=== PATIENT | female | born 1950 | race Caucasian/White ===

== ENCOUNTER → 2018-09-03 10:31 | Outpatient (CLI) | payer MEDICARE, BC | END | disposition home or self-care (01) | LOC: D.MRI 10:31 | PROVIDERS: ATTEND Family Medicine | DX: M13.862 Other specified arthritis, left knee (principal) ==

== ENCOUNTER → 2018-10-01 14:35 | Outpatient (CLI) | payer MEDICARE, BC | END | disposition home or self-care (01) | LOC: D.LABREF 14:35 | PROVIDERS: ATTEND Orthopaedic Surgery | DX: M17.12 Unilateral primary osteoarthritis, left knee (principal); Z11.8 Encounter for screening for other infectious and parasitic diseases ==

== ENCOUNTER 2018-10-02 12:24 | Inpatient (IN) | payer MEDICARE, BC ==
[~2018-10-02] VITALS: Ht 165.1 cm; Wt 81.8 kg
[2018-10-28] MEDS ORDERED: ACETAMINOPHEN325 MG PO (15:41)
[2018-10-28] MEDS ORDERED: OMEPRAZOLE20 M1 PO (15:41)
[2018-10-28] MEDS ORDERED: PROBIOTIC BLEN1 EACH PO (15:42)
[2018-10-28] MEDS ORDERED: FISH OIL 1,0001 CA1 PO (15:42)
[2018-10-28] MEDS ORDERED: CENTRUM SILVER1 EAC3 PO (15:42)
[2018-10-29 11:34] LABS: BASOPHILS 0.7 % (0-2); EOSINOPHILS 1.9 % (0-7); HEMATOCRIT 37.9 % (36.0-48.0); HEMOGLOBIN 12.1 g/dL (12-16); IMMATURE GRANULOCYTES 0.1 % (0-5); LYMPHOCYTES 27.5 % (15-50); MCH 23.4 pg (26.0-34.0); MCHC 31.9 g/dL (31.0-37.0); MCV 73.4 fL (80.0-100.0); MEAN PLATELET VOLUME 9.8 fL (7.4-10.4); MONOCYTES 11.5 % (2-11); NEUTROPHILS 58.3 % (40-80); PLATELET COUNT 235 10x3/uL (130-400); RBC 5.16 10x6/uL (4.00-5.40); RDW 18.2 % (11.5-14.5); WBC 6.9 10x3/uL (4.8-10.8)
[2018-10-29 11:36] LABS: APPEARANCE CLEAR (CLEAR); BILIRUBIN NEGATIVE (NEGATIVE); COLOR STRAW (YELLOW); GLUCOSE NEGATIVE (NEGATIVE); KETONE NEGATIVE (NEGATIVE); NITRITE NEGATIVE (NEGATIVE); PROTEIN NEGATIVE (NEGATIVE); SPECIFIC GRAVITY 1.005 (1.005-1.020); UROBILINOGEN NORMAL (NORMAL)
[2018-10-29 11:46] LABS: CALC OSMOLALITY 277 mosm/kg (275-300); CALCIUM 9.5 mg/dL (8.5-10.1); CARBON DIOXIDE 28.1 mmol/L (21.0-32.0); CHLORIDE - SERUM 103 mmol/L (98-107); CREATININE - SERUM 0.8 mg/dL (0.6-1.3); GLUCOSE 106 mg/dL (74-106); POTASSIUM - SERUM 3.9 mmol/L (3.5-5.1); SODIUM 138 mmol/L (136-145); UREA NITROGEN 17 mg/dL (7-18); eGFR NON AFRICAN AMERICAN 75 mL/min (90-120)
[2018-10-29 11:53] LABS: APTT 28.1 SECONDS (22.8-39.4); INR 1.11 (0.85-1.17); PROTIME 13.8 SECONDS (11.6-15.0)
[2018-10-29 12:14] LABS: FERRITIN 14 ng/mL (3-244)
[2018-10-31 16:08] LABS: HGB - INTERPRETATION Note: (()); HGB - SOLUBILITY Negative (Negative)
[2018-11-04] MEDS ORDERED: ZYRTEC10 MG PO (05:07)
[2018-11-04] MEDS ORDERED: AFRIN15 ML (05:08)
[2018-11-04 05:57] VITALS: BP 144/68; BMI 30.1
--- NOTE | 2018-11-04 09:21 | NUR ---
PT RESTING QUIETLY IN PACU DENIES ANY PAIN. ICE APPLIED TO L.KNEE. XRAY TEAM AT BEDSIDE FOR ORDERED XRAYS. NO CURRENT NEEDS.
[2018-11-04 09:39] VITALS: BP 131/60
[2018-11-04 09:56] VITALS: BP 131/60; Ht 165.1 cm; Wt 81.8 kg
--- NOTE | 2018-11-04 10:00 | NUR ---
TO ROOM 2217 FROM PACU VIA BED. PT IS WITHOUT DISTRESS. SHE STATES SHE WANTS TO TAKE A NAP. DRESSING LEFT KNEE CDI. ICE IN PLACE. ORIENTATION TO ROOM.CALL LIGHT IN REACH.
--- NOTE | 2018-11-04 11:49 | OP ---
PATIENT NAME: BARRY WORTHINGTON MEDICAL RECORD: [id number] :50 LOCATION:D.[facility] [address] ADMISSION DATE:11/04/18 SURGEON: YOUNG CHEEMA DO DATE OF OPERATION: 11/04/2018 PROCEDURE PERFORMED: Left total knee arthroplasty. Components used were 65 posterior stabilized Vanguard femur, 71 cruciate tibia, and a 31 three PEG thin patella, a 12 E-poly posterior stabilized bearing. PREOPERATIVE DIAGNOSIS: Left knee osteoarthritis with valgus deformity. POSTOPERATIVE DIAGNOSIS: Left knee osteoarthritis with valgus deformity. INDICATIONS: Ms. Worthington is a 68-year-old female who has had left knee pain for quite some time. She has been dealing with it, has tried all manner of nonoperative treatment including injections, physical therapy at home and she was tired of dealing with the pain and having pain with her knee and she was willing to take the risk of infection, bleeding, damage to nerves and vessels, need for further surgery, continued pain and signed a consent as well as blood clots and even . She signed the consent. SURGEON: Young Cheema DO YARD STOCKER: I was assisted by Luis Whyte, advanced nurse practitioner. Surgery could not have been performed without his assistance. He assisted with closing and retraction. DESCRIPTION OF PROCEDURE: The patient received a block by anesthesia in the preoperative area was taken to the operative suite, laid in supine position, given a gram of Ancef and 80 mg gentamicin preoperatively. The left lower extremity at that point was prepped and draped in sterile fashion. Timeout was performed, everyone was in agreement with the correct side, site, patient and procedure. Once that was done, the new incision was marked out and covered with Ioban and the 10-blade scalpel was used to cut through the skin down to the capsule. A fresh 10-blade was then used to do a medial parapatellar approach through the capsule. The patella was exposed, part of the fat pad was removed. Once the fat pad removed, the patella was milled down to fit a thin 31 prosthesis. Once that was completed, the femur was exposed and the ACL was taken off and a drill was used to get into the femoral canal. Once the femoral canal was entered, the distal femur was cut at 4 degrees of valgus. Due to her valgus deformity, we did not do 5. The tibia was then exposed and took 2 mm off the lateral side due to it being the more worn side. Once this was removed, the knee was brought to extension. A laminar machine splitter and [place] was used to expose the menisci. Menisci were removed at that time from the medial and lateral side. A 10 extension block was then put in. She was tight laterally as expected and a lateral release was done on the posterolateral tibia getting it to balance well with the extension block and this was then removed and the pins from the tibial cutting block were removed as well. The femur was then exposed and sized to be a 65. This was drilled and then a 4-in-1 cutting block was used to cut the femur and then a PS bone conserving block was put on the PS block was cut. This bone was then removed and then a trial was put on. The tibia and was floated in and ranged and rotation was marked. Once that was done, the tibial tray was removed and the patella was drilled. The lug holes had been drilled for the femur prior to removing the cutting block for the PS. Once that was completed, the tibia was exposed and then sized to be 71. This was drilled and OPERATIVE REPORT [id number] BARRY WORTHINGTON then punched and the extra holes were placed in the tibia. Once the tibia was drilled and punched, the cement was mixed and placed in the tibia and cement implant was impacted into place. Excess cement was removed. Once excess cement was removed from the tibia, femur was impacted in place press fit. A 10 poly was put in between the femur and the tibia, brought into extension and held while the dried. The patella was exposed during this time and after it was irrigated and curetted out the hole, cement was put in the holes in the patella and on the back of the patellar prosthesis. Squeezer was then put on. Excess cement was removed and the cement dried. The knee was thoroughly irrigated at that time and then trialed a 10 and a 12 poly. The 12 poly seemed to fit very well and had good range of motion and good stability from medial and lateral. The 23 implant was then put in. Once the 12 implant was put in, it was locked into place. Once it was locked into place with the pin, vancomycin and tobramycin powder as well as Surgicel powder was put in the knee. The capsule was then closed in a [id number]-[id number] fashion with a #2 Vicryl and the skin was closed with 2-0 Vicryl in inverted interrupted fashion and ZipLine was placed on the knee. Adaptic, 4 x 4s, ABD, Webril, and Jeff wrap were then placed on the knee. PAYTON hose stockinette was placed up to the knee. She was then awakened and taken to recovery in stable condition. She was given a gram of TXA prior to starting the procedure and at the closing of the procedure. She was then awakened and taken to recovery in stable condition. Blood loss was approximately 200 mL. Complications none. TRANSINT:[id number] Voice Confirmation ID: [id number] DOCUMENT ID: [id number] YOUNG CHEEMA DO at 1149 CC: SCAR GE MD [id number] DICTATION DATE: 11/04/18 0856 SPORTS BOOKMAKER: 11/04/18 0920 ADM IN [facility] [address] [place] [address]
[2018-11-04 17:04] VITALS: BP 165/76
--- NOTE | 2018-11-04 18:59 | NUR ---
STILL DENIES PAIN.CPM IN PLACE. WITHOUT CHANGE.CONT PLAN OF CARE
--- NOTE | 2018-11-04 20:00 | NUR ---
ASSESSMENT PER FLOWSHEET. LEFT LEG IN CPM MACHINE DRSG C/D/I. PPP+. TEDS/SCD'S ON. IV SALINE LOCKED TO RT ARM. SITE CLEAR.
--- NOTE | 2018-11-04 21:36 | NUR ---
CPM REMOVED PT PLACED ON BEDPAN VOIDS FREELY. REQUESTING PAIN MED FOR A PAIN LEVEL OF #4 IN HER BACK AND INCISIONAL AREA. PT DOES HAVE HX OF CHRONIC BACK PAIN. TORADOL 15MG IVP GIVEN FOR PAIN CONTROL.
[2018-11-04 21:56] VITALS: BP 146/75
--- NOTE | 2018-11-05 | NUR ---
EYES CLOSED RESPIRATIONS WITH EASE AND UNLABORED.
[2018-11-05 01:32] VITALS: BP 141/63
--- NOTE | 2018-11-05 03:24 | NUR ---
C/O PAIN INCISIONAL AREA RATES PAIN LEVEL #6 TORADOL 15 MG IVP GIVEN FOR PAIN CONTROL.
[2018-11-05 05:23] VITALS: BP 142/56
[2018-11-05 05:35] LABS: BASOPHILS 0.2 % (0-2); EOSINOPHILS 0.9 % (0-7); HEMOGLOBIN 9.6 g/dL (12-16); IMMATURE GRANULOCYTES 0.2 % (0-5); LYMPHOCYTES 24.3 % (15-50); MCH 23.3 pg (26.0-34.0); MCV 72.8 fL (80.0-100.0); MEAN PLATELET VOLUME 9.9 fL (7.4-10.4); MONOCYTES 14.8 % (2-11); NEUTROPHILS 59.6 % (40-80); RBC 4.12 10x6/uL (4.00-5.40); WBC 6.5 10x3/uL (4.8-10.8)
[2018-11-05 06:04] LABS: CALC OSMOLALITY 279 mosm/kg (275-300); CALCIUM 8.1 mg/dL (8.5-10.1); CARBON DIOXIDE 23.7 mmol/L (21.0-32.0); CHLORIDE - SERUM 106 mmol/L (98-107); CREATININE - SERUM 0.8 mg/dL (0.6-1.3); GLUCOSE 146 mg/dL (74-106); POTASSIUM - SERUM 3.4 mmol/L (3.5-5.1); SODIUM 138 mmol/L (136-145); UREA NITROGEN 16 mg/dL (7-18); eGFR NON AFRICAN AMERICAN 75 mL/min (90-120)
[2018-11-05 06:23] LABS: PLATELET COUNT 180 10x3/uL (130-400)
--- NOTE | 2018-11-05 07:55 | NUR ---
PT RESTING IN BED. DENIES ANY PAIN. ON CPM. NO S/S OF ACUTE DISTRESS. CL IN PLACE.
[2018-11-05 09:05] VITALS: BP 154/59
[2018-11-05 12:57] VITALS: BP 131/72
--- NOTE | 2018-11-05 13:56 | MORECARE ---
CASE MANAGEMENT DISCHARGE SUMMARY PATIENT: BARRY WORTHINGTON UNIT: [id number] ADM DATE: 11/04/18 AGE: 68 : 50 SEX: F ROOM/BED: D.2217 AUTHOR: BEKA ANN PHYSICIAN: REFERRING PHYSICIAN: BETH CHEEMA DO DATE OF SERVICE: 11/05/18 Discharge Plan Patient Name: BARRY WORTHINGTON Facility: [facility]:[place] : 1950 Planned Disposition: Home Anticipated Discharge Date: Discharge Date: Expected LOS: Initial Reviewer: [email or web address] Initial Review Date: 11/04/2018 Generated: 11/05/18 2:56 pm External [facility]iders [facility] Next Contact Date: Service Request Date: Service Type: Resolution: Reviewer: Comments: Patient Name: BARRY WORTHINGTON Page [phone] at 1356 All edits/amendments must be made on the electronic document DICTATION DATE: 11/05/18 1356 ENVIRONMENTAL PLANNING ENGINEER: KIRTI 11/05/18 1356 RPT#: [id number] DC DATE: STATUS: ADM IN [facility] [address] [place] [address] END OF REPORT
--- NOTE | 2018-11-05 14:11 | MORECARE ---
CASE MANAGEMENT DISCHARGE SUMMARY PATIENT: BARRY WORTHINGTON UNIT: [id number] ADM DATE: 11/04/18 AGE: 68 : 50 SEX: F ROOM/BED: D.5107 AUTHOR: BEKA ANN PHYSICIAN: REFERRING PHYSICIAN: BETH CHEEMA DO DATE OF SERVICE: 11/05/18 Discharge Plan Patient Name: BARRY WORTHINGTON Facility: [facility]:[place] : 1950 Planned Disposition: Home Anticipated Discharge Date: Discharge Date: Expected LOS: Initial Reviewer: [email or web address] Initial Review Date: 11/04/2018 Generated: 11/05/18 3:11 pm Comments DCP- Discharge Planning Updated by [email or web address]: Carolina Rivera on 11/05/18 1:[address] Patient Name: BARRY WORTHINGTON Admission Status: Elective Accout number: [id number] Admission Date: 11-04-2018 : 1950 Admission Diagnosis: Attending: BETH CHEEMA Current LOS: 1 Anticipated DC Date: Planned Disposition: Home Primary Insurance: MEDICARE A & B Discharge Planning Comments: CM met with patient to complete initial dc planning assessment. CM educated patient on the CM role and verbal consent given by patient to complete assessment. Patient lives at home with her where she is independent with her care. At discharge patient plans to return home and feels this is a safe discharge. CM discussed availability of home health, rehab services, and medical equipment. She has a walker, cpm, elevated toilet, shower chair and ice machine. The DME was set up by Dr Cheema. Patient will be doing [facility]. I have made her appointment for SaturdayNovember 10 @ 1:15 pm. I spoke with Wendi at [facility]. Patient denied known discharge needs at this time. CM will continue to follow and will assist as needed with dc plans/needs. Transfer Engineer: Carolina Rivera DCPIA - Discharge Planning Initial Assessment Updated by [email or web address]: Carolina Rivera on 11/05/18 1:58 pm * Is the patient Alert and Oriented? Yes * How many steps to enter\exit or inside your home? * [facility]CP [facility] * Pharmacy [facility] * Preadmission Environment Home with Family * ADLs Independent * Equipment Elevated [place] Seat Other Rolling Walker Shower Chair * Other Equipment CPM ICE MACHINE * List name and contact numbers for known caregivers / representatives who currently or will assist patient after discharge: TANMAY WORTHINGTON [phone] * Verbal permission to speak to the caregivers and representatives has been obtained from the patient. N/A * Community resources currently utilized None * Additional services required to return to the preadmission environment? Yes * Can the patient safely return to the preadmission environment? Yes * Has this patient been hospitalized within the prior 30 days at any hospital? No Last DP export: 11/05/18 12:56 p Patient Name: BARRY WORTHINGTON Page [phone] at 1411 All edits/amendments must be made on the electronic document DICTATION DATE: 11/05/181410 DOOR GLASS INSTALLER: KIRTI 11/05/181410 RPT#: [id number] DC DATE: STATUS: ADM IN [facility] [address] [place] [address] END OF REPORT
[2018-11-05 19:21] VITALS: BP 143/68
--- NOTE | 2018-11-05 20:00 | NUR ---
ASSESSMENT PER FLOWSHEET. PT SITTING IN CHAIR AT BEDSIDE. IV PATENT LEFT FOREARM WITH IRON INFUSING. WILL SALINE LOCK AFTER IV DONE. DRSG TO LEFT KNEE C/D/I.
--- NOTE | 2018-11-05 20:30 | NUR ---
UP WITH USE OF WALKER AND PARTIAL ASSIST TO BR VOIDS WELL ASSISTED BACK TO BED PLACED LEFT LEG INTO CPM MACHINE. SR UP X2 CALL LIGHT WITHIN REACH.
--- NOTE | 2018-11-05 21:00 | NUR ---
MEDS GIVEN PER MAR.
[2018-11-05 21:25] VITALS: BP 178/74
--- NOTE | 2018-11-05 23:00 | NUR ---
CPM REMOVED FROM LEFT LEG.
--- NOTE | 2018-11-05 23:47 | NUR ---
REQUESTING PAIN MED TORADOL 10MG PO TAB ONE GIVEN FOR PAIN CONTROL.
--- NOTE | 2018-11-06 | NUR ---
RESTING AT THIS TIME SR UP X2 CALL LIGHT WITHIN REACH.
--- NOTE | 2018-11-06 01:40 | NUR ---
REQUESTING PAIN MED. OXYIR 5MG PO TAB ONE GIVEN FOR PAIN CONTROL.
[2018-11-06 02:22] VITALS: BP 164/53
--- NOTE | 2018-11-06 04:00 | NUR ---
EYES CLOSED RESPIRATIONS WITH EASE AND UNLABORED.
[2018-11-06 05:55] VITALS: BP 115/64
[2018-11-06 06:11] LABS: BASOPHILS 0.5 % (0-2); EOSINOPHILS 1.1 % (0-7); HEMATOCRIT 30.2 % (36.0-48.0); HEMOGLOBIN 9.8 g/dL (12-16); IMMATURE GRANULOCYTES 0.3 % (0-5); LYMPHOCYTES 17.2 % (15-50); MCH 23.4 pg (26.0-34.0); MCHC 32.5 g/dL (31.0-37.0); MCV 72.2 fL (80.0-100.0); MEAN PLATELET VOLUME 9.9 fL (7.4-10.4); MONOCYTES 11.1 % (2-11); NEUTROPHILS 69.8 % (40-80); PLATELET COUNT 172 10x3/uL (130-400); RBC 4.18 10x6/uL (4.00-5.40); RDW 19.3 % (11.5-14.5); WBC 6.5 10x3/uL (4.8-10.8)
[2018-11-06 06:41] LABS: CALC OSMOLALITY 275 mosm/kg (275-300); CALCIUM 8.9 mg/dL (8.5-10.1); CARBON DIOXIDE 24.4 mmol/L (21.0-32.0); CHLORIDE - SERUM 103 mmol/L (98-107); CREATININE - SERUM 0.7 mg/dL (0.6-1.3); GLUCOSE 123 mg/dL (74-106); POTASSIUM - SERUM 3.7 mmol/L (3.5-5.1); SODIUM 138 mmol/L (136-145); eGFR NON AFRICAN AMERICAN 88 mL/min (90-120)
[2018-11-06 06:42] LABS: UREA NITROGEN 10 mg/dL (7-18)
--- NOTE | 2018-11-06 08:07 | NUR ---
PT RESTING IN BED ON CPM. NO BM NOTED. EXPLAINED TO PT WE COULD TALK TO MD ABOUT ORDERING SOMETHING EXTRA IF NEEDED OR WE COULD TRY PRUNE JUICE. PT "WANTS TO TRY PRUNE JUICE AFTER CPM." NO S/S OF ACUTE DISTRESS. CL IN PLACE.
[2018-11-06 09:41] VITALS: BP 155/59
[2018-11-06 13:51] VITALS: BP 161/73
[2018-11-06 17:46] VITALS: BP 166/81
--- NOTE | 2018-11-06 18:44 | NUR ---
PT RESTING IN BED.CPM ON 1829. NO S/S OF ACUTE DISTRESS. CL IN PLACE.
[2018-11-06 21:13] VITALS: BP 181/70
[2018-11-07 00:29] VITALS: BP 150/55
--- NOTE | 2018-11-07 05:12 | NUR ---
ASSESSED AT THE BEGINNING OF THE SHIFT. PT IS ALERT AND ORIENTED ABLE TO VERBALIZE NEEDS. SHE STARTED THE SHIFT WITH HER CPM ON AND TOLERATED IT WELL. WE HAVE GIVEN HER PAIN MEDS NEEDED AND SHE HAS BEEN ASSISTED UP TO THE BATHROOM TO VOID WITH HER WALKER. THIS MORNING SHE HAS ALREADY BEEN PLACED ON HER CPM FOR AM THERAPY. DURING THE NIGHT SHE HAD NO COMPLAINS OF NOT BEING ABLE TO SLEEP. WILL CONTINUE TO MONITOR.
[2018-11-07 05:28] VITALS: BP 173/62
[2018-11-07] MEDS ORDERED: KEFLEX500 MG PO (07:15)
[2018-11-07] MEDS ORDERED: OXYCODONE HCL5 M1 PO (07:15)
[2018-11-07] MEDS ORDERED: ULTRAM50 MG PO (07:15)
[2018-11-07 07:16] LABS: BASOPHILS 0.4 % (0-2); EOSINOPHILS 2.6 % (0-7); HEMOGLOBIN 9.6 g/dL (12-16); IMMATURE GRANULOCYTES 0.2 % (0-5); LYMPHOCYTES 24.1 % (15-50); MCH 23.2 pg (26.0-34.0); MCV 72.5 fL (80.0-100.0); MEAN PLATELET VOLUME 10.5 fL (7.4-10.4); MONOCYTES 14.9 % (2-11); NEUTROPHILS 57.8 % (40-80); PLATELET COUNT 191 10x3/uL (130-400); RBC 4.14 10x6/uL (4.00-5.40); RDW 19.1 % (11.5-14.5)
[2018-11-07] MEDS ORDERED: ELIQUIS2.5 MG PO (07:16)
[2018-11-07 07:20] LABS: CALC OSMOLALITY 273 mosm/kg (275-300); CALCIUM 8.8 mg/dL (8.5-10.1); CARBON DIOXIDE 24.5 mmol/L (21.0-32.0); CHLORIDE - SERUM 103 mmol/L (98-107); CREATININE - SERUM 0.7 mg/dL (0.6-1.3); GLUCOSE 105 mg/dL (74-106); POTASSIUM - SERUM 3.5 mmol/L (3.5-5.1); SODIUM 137 mmol/L (136-145); eGFR NON AFRICAN AMERICAN 88 mL/min (90-120)
[2018-11-07 07:21] LABS: UREA NITROGEN 13 mg/dL (7-18)
--- NOTE | 2018-11-07 07:25 | NUR ---
PT LYING IN BED, CPM ON PT LEFT KNEE, SCHEDULED TO BE OFF AT 0815. NO NEEDS VOICED, CL IN REACH PT STATED TO BE DC TODAY, ORDERS ARE IN ADVISED SHOULD BE RIGHT AFTER BREAKFAST. CONTINUE WITH PLAN OF CARE
[2018-11-07 07:26] LABS: WBC 8.2 10x3/uL (4.8-10.8)
[2018-11-07 08:20] VITALS: BP 161/71
--- NOTE | 2018-11-07 09:02 | MORECARE ---
CASE MANAGEMENT DISCHARGE SUMMARY PATIENT: BARRY WORTHINGTON UNIT: [id number] ADM DATE: 11/04/18 AGE: 68 : 50 SEX: F ROOM/BED: D.2217 AUTHOR: MARISSA,DOC PHYSICIAN: REFERRING PHYSICIAN: BETH CHEEMA DO DATE OF SERVICE: 11/07/18 Discharge Plan Patient Name: BARRY WORTHINGTON Facility: [facility]:[place] : 1950 Planned Disposition: Home Anticipated Discharge Date: Discharge Date: Expected LOS: Initial Reviewer: [email or web address] Initial Review Date: 11/04/2018 Generated: 11/07/18 10:02 am Comments DCP- Discharge Planning Updated by [email or web address]: Carolina Rivera on 11/07/18 7:[address] Patient Name: BARRY WORTHINGTON Encounter No: [id number] : 1950 Primary Insurance: MEDICARE A & B Anticipated DC Date: Planned Disposition: Home External Planned Provider: : DCP follow-up note: Patient and family in agreement with discharge plan. IMM served and explained. No changes to plan. Case management will follow and assist as needed. Carolina Rivera DCP- Discharge Planning Updated by [email or web address]: Carolina Rivera on 11/05/18 1:[address] Patient Name: BARRY WORTHINGTON Admission Status: Elective Accout number: [id number] Admission Date: 11-04-2018 : 1950 Admission Diagnosis: Attending: BETH CHEEMA Current LOS: 1 Anticipated DC Date: Planned Disposition: Home Primary Insurance: MEDICARE A & B Discharge Planning Comments: CM met with patient to complete initial dc planning assessment. CM educated patient on the CM role and verbal consent given by patient to complete assessment. Patient lives at home with her where she is independent with her care. At discharge patient plans to return home and feels this is a safe discharge. CM discussed availability of home health, rehab services, and medical equipment. She has a walker, cpm, elevated toilet, shower chair and ice machine. The DME was set up by Dr Cheema. Patient will be [facility] [place]. I have made her appointment for SaturdayNovember 10 @ 1:15 pm. I spoke with Wendi at [facility]. Patient denied known discharge needs at this time. CM will continue to follow and will assist as needed with dc plans/needs. Electric Wheelchair Repairer: Carolina Rivera DCPIA - Discharge Planning Initial Assessment Updated by [email or web address]: Carolina Rivera on 11/05/18 1:58 pm * Is the patient Alert and Oriented? Yes * How many steps to enter\exit or inside your home? * [facility]CP [facility] * Pharmacy [facility] * Preadmission Environment Home with Family * ADLs Independent * Equipment Elevated [place] Seat Other Rolling Walker Shower Chair * Other Equipment CPM ICE MACHINE * List name and contact numbers for known caregivers / representatives who currently or will assist patient after discharge: BELENYINGIsaias WORTHINGTON [phone] * Verbal permission to speak to the caregivers and representatives has been obtained from the patient. N/A * Community resources currently utilized None * Additional services required to return to the preadmission environment? Yes * Can the patient safely return to the preadmission environment? Yes * Has this patient been hospitalized within the prior 30 days at any hospital? No Coverage Notice Reviewer: [id number] - Carolina Rivera Notice Issued Date-Time: 11/07/2018 8:50 Notice Type: IM Discharge Notice Notice Delivered To: Patient Relationship to Patient: Mask Inspector Name: Delivery Method: HAND - Hand Delivered Luz Marina Days: Prior Verbal Notification: Recipient Understood Notice: Yes Recipient Signature: Yes Med Rec Note Co-signed by Attending: Coverage Notice Comment: Last DP export: 11/05/18 1:11 p Patient Name: BARRY WORTHINGTON Page 45606 at 0902 All edits/amendments must be made on the electronic document DICTATION DATE: 11/07/18901 ADMINISTRATIVE SECRETARY: KIRTI 11/07/18901 RPT#: [id number] DC DATE: STATUS: ADM IN [facility] [address] [place] [address] END OF REPORT
--- NOTE | 2018-11-07 09:49 | NUR ---
PT REQUESTED PAIN MEDICATION BEFORE DC STATED SHE WORKED HERSELF UP GETTING UP AND CHANGING CLOTHES AND GETTING READY FOR DC STATED PAIN WAS AT A 4 BUT NOW AT 6 DUE TO ACTIVITY. ADMINISTERED PRN PAIN EMDS, WENT OVER DC INSTRUCTIONS WITH PT ALL QUESTIONS ANSWERED, PT TO BE TAKEN DOWN VIA W/C BY PROGRESSIVE CARE MANAGER
== END 2018-11-07 10:53 | disposition home or self-care (01) | DRG 470 ==
LOC: D.SDCHOLD 10-29 10:00 → D.MS 11-04 05:00 → D.SDCHOLD 11-04 07:00 → D.MS 11-04 09:19 → D.SDCHOLD 11-04 10:00 → D.MS 11-07 10:53
PROVIDERS: Internal Medicine Nephrology; ADMIT Orthopaedic Surgery; ATTEND Orthopaedic Surgery
PROC: 0SRD0J9 Replacement of Left Knee Joint with Synthetic Substitute, Cemented, Open Approach (ICD-10-PCS; principal; 2018-11-04 07:00)
DX: M17.12 Unilateral primary osteoarthritis, left knee (principal); M21.062 Valgus deformity, not elsewhere classified, left knee; E66.9 Obesity, unspecified; K21.9 Gastro-esophageal reflux disease without esophagitis; Z68.30 Body mass index [BMI] 30.0-30.9, adult; I10 Essential (primary) hypertension

== ENCOUNTER → 2018-12-11 09:54 | Outpatient (CLI) | payer MEDICARE, BC ==
[~2018-12-11 09:54] MED LIST: ACETAMINOPHEN325 MG PO; AFRIN15 ML; CENTRUM SILVER1 EAC3 PO; ELIQUIS2.5 MG PO; FISH OIL 1,0001 CA1 PO; KEFLEX500 MG PO; OMEPRAZOLE20 M1 PO; OXYCODONE HCL5 M1 PO; PROBIOTIC BLEN1 EACH PO; ULTRAM50 MG PO; ZYRTEC10 MG PO
== END | disposition home or self-care (01) ==
LOC: D.MRI 09:54
PROVIDERS: ATTEND Orthopaedic Surgery
DX: M25.511 Pain in right shoulder (principal); M25.512 Pain in left shoulder

== ENCOUNTER → 2018-12-25 11:15 | Outpatient (CLI) | payer MEDICARE, BC ==
[2018-12-25 12:58] LABS: ERYTHROCYTE SEDIMENTATION RATE 24 mm/hr (0-30)
[2018-12-25 13:01] LABS: BASOPHILS 0.4 % (0-2); EOSINOPHILS 1.7 % (0-7); HEMATOCRIT 38.8 % (36.0-48.0); IMMATURE GRANULOCYTES 0.1 % (0-5); LYMPHOCYTES 24.5 % (15-50); MCH 25.9 pg (26.0-34.0); MCHC 33.5 g/dL (31.0-37.0); MCV 77.3 fL (80.0-100.0); MONOCYTES 9.3 % (2-11); RBC 5.02 10x6/uL (4.00-5.40); RDW 18.4 % (11.5-14.5)
[2018-12-25 13:10] LABS: PLATELET COUNT 263 10x3/uL (130-400)
== END | disposition home or self-care (01) ==
LOC: D.LABREF 11:15
PROVIDERS: ATTEND Orthopaedic Surgery
DX: M25.562 Pain in left knee (principal)

== ENCOUNTER → 2019-02-16 21:21 | Outpatient (CLI) | payer MEDICARE, BC ==
[~2019-02-16 21:21] MED LIST changes: +ALOPHEN PILLS5 MG PO; +COLACE100 MG PO; +VISTARIL50 MG PO
== END | disposition home or self-care (01) ==
LOC: D.LABREF 21:21
PROVIDERS: ATTEND Orthopaedic Surgery
DX: M19.011 Primary osteoarthritis, right shoulder (principal)

== ENCOUNTER 2019-02-20 14:47 | Inpatient (IN) | payer MEDICARE, BC ==
[~2019-02-20] VITALS: Ht 160 cm; Wt 79.5 kg
[~2019-02-20 14:47] MED LIST changes: -ALOPHEN PILLS5 MG PO; -COLACE100 MG PO; -VISTARIL50 MG PO
[2019-03-09] MEDS ORDERED: ALOPHEN PILLS5 MG PO (09:51)
[2019-03-09] MEDS ORDERED: COLACE100 MG PO (09:52)
[2019-03-09 10:55] LABS: BASOPHILS 0.3 % (0-2); EOSINOPHILS 1.8 % (0-7); HEMATOCRIT 42.3 % (36.0-48.0); HEMOGLOBIN 13.6 g/dL (12-16); IMMATURE GRANULOCYTES 0.1 % (0-5); LYMPHOCYTES 34.4 % (15-50); MCH 26.7 pg (26.0-34.0); MCHC 32.2 g/dL (31.0-37.0); MCV 83.1 fL (80.0-100.0); MONOCYTES 11.4 % (2-11); PLATELET COUNT 251 10x3/uL (130-400); RBC 5.09 10x6/uL (4.00-5.40); RDW 15.7 % (11.5-14.5); WBC 6.7 10x3/uL (4.8-10.8)
[2019-03-09 11:02] LABS: APTT 29.9 SECONDS (22.8-39.4); CALC OSMOLALITY 283 mosm/kg (275-300); CALCIUM 9.6 mg/dL (8.5-10.1); CARBON DIOXIDE 28.3 mmol/L (21.0-32.0); CHLORIDE - SERUM 105 mmol/L (98-107); CREATININE - SERUM 0.7 mg/dL (0.6-1.3); GLUCOSE 95 mg/dL (74-106); INR 1.04 (0.85-1.17); POTASSIUM - SERUM 3.9 mmol/L (3.5-5.1); PROTIME 13.1 SECONDS (11.6-15.0); SODIUM 141 mmol/L (136-145); UREA NITROGEN 20 mg/dL (7-18); eGFR NON AFRICAN AMERICAN 88 mL/min (90-120)
[2019-03-09 12:10] LABS: APPEARANCE CLEAR (CLEAR); BILIRUBIN NEGATIVE (NEGATIVE); COLOR YELLOW (YELLOW); GLUCOSE NEGATIVE (NEGATIVE); KETONE NEGATIVE (NEGATIVE); NITRITE NEGATIVE (NEGATIVE); PROTEIN NEGATIVE (NEGATIVE); UROBILINOGEN NORMAL (NORMAL)
[2019-03-10 08:57] VITALS: BP 179/90; BMI 31.6
--- NOTE | 2019-03-10 12:05 | NUR ---
PLASMA BLADE SET TO 6/8. BOVIE PAD LEFT THIGH [id number] EXP 07/07/20 PREPPED FROM SHOULDER TO FINGERS CIRCUMFERENTAILLY WITH ALCOHOL/HIBICLENS AND DREID WITH A TOWEL. THEN CLEANED WITH CHLORAPREP. STERILE GOWN AND GLOVES WORN DURING PREP. TRAFFIC MONITORED IN AND OUT OF ROOM AND KEPT TO A MINIMUM. LAMINAR FLOW NOT IN USE.
[2019-03-10 13:46] VITALS: BP 125/62
[2019-03-10 16:20] VITALS: BP 121/71
--- NOTE | 2019-03-10 18:15 | NUR ---
I have reviewed this patient and I concur with the Shift Assessment completed by the Licensed Practical Nurse today this shift.
[2019-03-10 20:00] VITALS: BP 110/58
[2019-03-10 20:25] VITALS: BP 110/58
[2019-03-10 21:39] VITALS: BP 110/58; Ht 160 cm; Wt 79.5 kg
[2019-03-11] VITALS: BP 108/60
[2019-03-11 00:17] VITALS: BP 110/62
[2019-03-11 04:04] VITALS: BP 132/63
[2019-03-11 04:30] VITALS: BP 132/63
[2019-03-11 06:42] LABS: CALC OSMOLALITY 277 mosm/kg (275-300); CALCIUM 8.7 mg/dL (8.5-10.1); CARBON DIOXIDE 23.4 mmol/L (21.0-32.0); CHLORIDE - SERUM 106 mmol/L (98-107); CREATININE - SERUM 0.7 mg/dL (0.6-1.3); GLUCOSE 138 mg/dL (74-106); POTASSIUM - SERUM 3.8 mmol/L (3.5-5.1); SODIUM 137 mmol/L (136-145); UREA NITROGEN 19 mg/dL (7-18); eGFR NON AFRICAN AMERICAN 88 mL/min (90-120)
--- NOTE | 2019-03-11 07:15 | NUR ---
REC'D IN BED AWAKE AND ALERT. RESP EVEN AND UNLABORED WITH NO DISTRESS NOTED. CAN EXPRESS NEEDS AND WANTS. NO C/O NOTED OR VOICED. ASSESSMENT COMPLETED. C/L IN REACH AT BEDSIDE.
[2019-03-11 08:02] LABS: BASOPHILS 0.1 % (0-2); EOSINOPHILS 0.6 % (0-7); IMMATURE GRANULOCYTES 0.1 % (0-5); LYMPHOCYTES 24.5 % (15-50); MCH 26.4 pg (26.0-34.0); MCV 82.6 fL (80.0-100.0); MONOCYTES 14.9 % (2-11); NEUTROPHILS 59.8 % (40-80); PLATELET COUNT 221 10x3/uL (130-400); RBC 4.09 10x6/uL (4.00-5.40); RDW 15.7 % (11.5-14.5)
[2019-03-11 08:03] LABS: HEMATOCRIT 33.8 % (36.0-48.0); WBC 8.8 10x3/uL (4.8-10.8)
[2019-03-11 08:06] LABS: HEMOGLOBIN 10.8 g/dL (12-16)
[2019-03-11 08:40] VITALS: BP 105/73
[2019-03-11 12:40] VITALS: BP 173/76
[2019-03-11] MEDS ORDERED: OXYCODONE HCL5 M1 PO (13:39)
[2019-03-11] MEDS ORDERED: VISTARIL50 MG PO (13:39)
--- NOTE | 2019-03-11 13:58 | NUR ---
I have reviewed this patient and I concur with the Shift Assessment completed by the Licensed Practical Nurse today this shift.
--- NOTE | 2019-03-11 14:36 | MORECARE ---
CASE MANAGEMENT DISCHARGE SUMMARY PATIENT: BARRY WORTHINGTON UNIT: [id number] ADM DATE: 03/10/19 AGE: 68 : 50 SEX: F ROOM/BED: D.2208 AUTHOR: MARISSADOC PHYSICIAN: REFERRING PHYSICIAN: BETH CHEEMA DO DATE OF SERVICE: 03/11/19 Discharge Plan Patient Name: BARRY WORTHINGTON Facility: [facility]:[place] : 1950 Planned Disposition: Home or Self Care Anticipated Discharge Date: Discharge Date: Expected LOS: Initial Reviewer: [email or web address] Initial Review Date: 03/10/2019 Generated: 03/11/19 3:35 pm Comments DCP- Discharge Planning Updated by [email or web address]: Carolina Rivera on 03/11/19 1:[address] Patient Name: BARRY WORTHINGTON Admission Status: Elective Accout number: [id number] Admission Date: 03-10-2019 : 1950 Admission Diagnosis: Attending: BETH CHEEMA Current LOS: 1 Anticipated DC Date: Planned Disposition: Home or Self Care Primary Insurance: MEDICARE A & B Discharge Planning Comments: CM met with patient to complete initial dc planning assessment. CM educated patient on the CM role and verbal consent given by patient to complete assessment. Patient lives at home with her spouse where she is independent with her care. At discharge patient plans to return home and feels this is a safe discharge. CM discussed availability of home health, rehab services, and medical equipment. sShe stated that she has everything she needs at home. She has set up OP PT already. Patient denied known discharge needs at this time. CM will continue to follow and will assist as needed with dc plans/needs. Metal Miner Blasting: Carolina Rivera DCPIA - Discharge Planning Initial Assessment Updated by [email or web address]: Carolina Rivera on 03/11/19 2:30 pm * Is the patient Alert and Oriented? Yes * How many steps to enter\exit or inside your home? * [facility]CP [facility] * Pharmacy [address] * Preadmission Environment Home with Family * ADLs Independent * Equipment Other * Other Equipment ICE * List name and contact numbers for known caregivers / representatives who currently or will assist patient after discharge: ROMA TEJADA) [phone] * Verbal permission to speak to the caregivers and representatives has been obtained from the patient. N/A * Community resources currently utilized None * Additional services required to return to the preadmission environment? No * Can the patient safely return to the preadmission environment? Yes * Has this patient been hospitalized within the prior 30 days at any hospital? No Patient Name: BARRY WORTHINGTON Page 37625 at 1436 All edits/amendments must be made on the electronic document DICTATION DATE: 03/11/191434 DIRECTOR OF INTEGRATED MARKETING: KIRTI 03/11/191434 RPT#: [id number] DC DATE: STATUS: ADM IN [facility] [address] [place] [address] END OF REPORT
--- NOTE | 2019-03-11 16:08 | NUR ---
DC HOME AT THIS TIME VOICES UNDERSTANDING OF DC INSTRUCTION. IV DC WITH TIP INTACT AND MEDICATED WITH OXY 5 MG AT THIS TIME WELL. C/L IN REACH AT BEDSIDE.
--- NOTE | 2019-03-12 11:02 | MORECARE ---
CASE MANAGEMENT DISCHARGE SUMMARY PATIENT: BARRY WORTHINGTON UNIT: [id number] ADM DATE: 03/10/19 AGE: 68 : 50 SEX: F ROOM/BED: D.2207 AUTHOR: MARISSA,DOC PHYSICIAN: REFERRING PHYSICIAN: BETH CHEEMA DO DATE OF SERVICE: 03/12/19 Discharge Plan Patient Name: BARRY WORTHINGTON Facility: [facility]:[place] : 1950 Planned Disposition: Home or Self Care Anticipated Discharge Date: Discharge Date: 03/11/2019 Expected LOS: 0 Initial Reviewer: [email or web address] Initial Review Date: 03/10/2019 Generated: 03/12/19 12:01 pm DCP- Discharge Planning Updated by [email or web address]: Carolina Rivera on 03/11/19 1:[address] Patient Name: BARYR WORTHINGTON Admission Status: Elective Accout number: [id number] Admission Date: 03-10-2019 : 1950 Admission Diagnosis: Attending: BETH CHEEMA Current LOS: 1 Anticipated DC Date: Planned Disposition: Home or Self Care Primary Insurance: MEDICARE A & B Discharge Planning Comments: CM met with patient to complete initial dc planning assessment. CM educated patient on the CM role and verbal consent given by patient to complete assessment. Patient lives at home with her spouse where she is independent with her care. At discharge patient plans to return home and feels this is a safe discharge. CM discussed availability of home health, rehab services, and medical equipment. sShe stated that she has everything she needs at home. She has set up OP PT already. Patient denied known discharge needs at this time. CM will continue to follow and will assist as needed with dc plans/needs. Ccie: Carolina Rivera DCPIA - Discharge Planning Initial Assessment Updated by [email or web address]: Carolina Rivera on 03/11/19 2:30 pm * Is the patient Alert and Oriented? Yes * How many steps to enter\exit or inside your home? * [facility]CP [facility] * Pharmacy [address] * Preadmission Environment Home with Family * ADLs Independent * Equipment Other * Other Equipment ICE * List name and contact numbers for known caregivers / representatives who currently or will assist patient after discharge: ROMA (ROMA) [phone] * Verbal permission to speak to the caregivers and representatives has been obtained from the patient. N/A * Community resources currently utilized None * Additional services required to return to the preadmission environment? No * Can the patient safely return to the preadmission environment? Yes * Has this patient been hospitalized within the prior 30 days at any hospital? No Last DP export: 03/11/19 1:36 Patient Name: BARRY WORTHINGTON Page 54612 at 1102 All edits/amendments must be made on the electronic document DICTATION DATE: 03/12/19 110 POST GRADUATE INTERN: KIRTI 03/12/19 110 RPT#: [id number] [place] DATE:03/11/19 STATUS: DIS IN [facility] [address] [place] [address] END OF REPORT
--- NOTE | 2019-03-30 16:31 | OP ---
PATIENT NAME: BARRY WORTHINGTON MEDICAL RECORD: [id number] :50 LOCATION:[id number] ADMISSION DATE:03/10/19 SURGEON: YOUNG CHEEMA DO DATE OF OPERATION: 03/10/2019 I was assisted by Christine Unger Nurse Practitioner during the surgery. PROCEDURE PERFORMED: Right reverse total shoulder arthroplasty. PREOPERATIVE DIAGNOSIS: Right shoulder rotator cuff tear arthropathy. POSTOPERATIVE DIAGNOSIS: Right shoulder rotator cuff tear arthropathy. INDICATIONS: Ms. Worthington is a 68-year-old female who has had right shoulder pain for quite some time. She had an MRI, which showed a severe tear in the supraspinatus, subscapularis and partial tear of the infraspinatus with fatty atrophy in the supraspinatus muscle belly. She also had severe arthritis in the shoulder with cartilage loss knowing that a reverse total shoulder would be the best option for her. She is aware of the risks including infection, bleeding, fracture, damage to nerves and vessels, need for further surgery, continued pain, loss of motion and dislocation. She was aware of those facts and signed the consent. SURGEON: Young Cheema DO DESCRIPTION OF PROCEDURE: I was assisted by Fabian Whyte, Advanced Nurse Practitioner. The patient received a block by anesthesia in preoperative area, given 900 mg of clindamycin, given a gram of TXA prior to starting, was taken to the operative suite, laid in supine position, sedated and intubated, then placed in the beach chair position. At that time, the right shoulder was prepped and draped in sterile fashion. Timeout was performed. Everyone was in agreeance with the correct side, site, patient and procedure. I then covered the site and around the drapes in [place] and the incision began over the deltopectoral interval. Careful dissection was made down to the deltopectoral interval. The Roberto was then used to free up the deltoid. A Brown retractor was then used to expose the humerus. Clavipectoral fascia was then incised. The proximal centimeter of the pec was removed and the bicep tendon was tagged and secured to the stump of the pec. The proximal portion of the bicep was then cut. The subscapularis was then tagged and peeled off of the humerus with external rotation. We then put the guide down the humerus and the humeral head was cut. The glenoid was then exposed and the labrum was removed. Centering pin was used and then we reamed and cleared off any debris. It was then drilled and sized to be a 30 central screw and a baseplate was screwed in and put 3 peripheral screws around, two being 22 in length and one being 14, securing the baseplate quite nicely. The lateralized sphere was then placed and then the proximal humerus was exposed, broached to 2. This fit very well and then trialled 6 tray, the offset tray plate. This was then reduced, fit very well. This was dislocated and then we irrigated and put the actual implants and impacted into place and the shoulder was reduced, had good motion and the conjoined tendon was appropriately taut as well as the deltoid fibers. We then irrigated and then put in the mixture of Betadine, 10% Betadine sterile with 500 mL of normal saline and let it sit for 3 minutes in the wound. This was then irrigated out with a liter of normal saline. Then, Yulisa, vancomycin and tobramycin powder were placed in and a drain was placed in and the site was closed with 2-0 Vicryl OPERATIVE REPORT [id number] BARRY WORTHINGTON in an inverted interrupted fashion, 4-0 Monocryl ran in the skin and Prineo glue placed on the skin by Fabian Whyte APRN. She was awakened and taken to recovery in stable condition. Blood loss was approximately 200 mL. COMPLICATIONS: None. TRANSINT:[id number] Voice Confirmation ID: [id number] DOCUMENT ID: [id number] 03/30/2019 Edited for emily Bella. YOUNG CHEEMA DO at 1631 CC: [id number] DICTATION DATE: 03/10/19 1259 EXTRUDER OPERATOR MULTIPLE: 03/10/19 1333 DIS IN 03/11/19 [facility] [address] [place] [address]
== END 2019-03-11 16:15 | disposition home or self-care (01) | DRG 483 ==
LOC: D.MS 03-10 08:20 → D.SDCHOLD 03-10 08:20 → D.MS 03-10 13:29 → D.SDCHOLD 03-10 14:00 → D.MS 03-11 16:15
PROVIDERS: Family Medicine; ADMIT Orthopaedic Surgery; ATTEND Orthopaedic Surgery
PROC: 0RRJ00Z Replacement of Right Shoulder Joint with Reverse Ball and Socket Synthetic Substitute, Open Approach (ICD-10-PCS; principal; 2019-03-10 10:30)
DX: M75.101 Unspecified rotator cuff tear or rupture of right shoulder, not specified as traumatic (principal); D62 Acute posthemorrhagic anemia; K21.9 Gastro-esophageal reflux disease without esophagitis

== ENCOUNTER 2019-06-12 05:40 | Day surgery (SDC) | payer MEDICARE, BC ==
[2019-06-11 09:21] LABS: HEMATOCRIT 41.4 % (36.0-48.0); HEMOGLOBIN 13.7 g/dL (12-16); MCH 27.5 pg (26.0-34.0); MCHC 33.1 g/dL (31.0-37.0); MEAN PLATELET VOLUME 9.5 fL (7.4-10.4); RBC 4.99 10x6/uL (4.00-5.40); RDW 15.9 % (11.5-14.5); WBC 7.3 10x3/uL (4.8-10.8)
[~2019-06-12] VITALS: Ht 160 cm; Wt 80.7 kg
[~2019-06-12 05:40] MED LIST changes: +ALOPHEN PILLS5 MG PO; +ASCORBIC ACID500 MG PO; +COLACE100 MG PO; +VISTARIL50 MG PO
[2019-06-12 06:49] VITALS: BP 167/64; Ht 160 cm; Wt 80.7 kg
[2019-06-12] MEDS ORDERED: VISTARIL50 MG PO (09:04)
[2019-06-12] MEDS ORDERED: ZOFRAN ODT4 MG/UDTAB PO (09:04)
[2019-06-12] MEDS ORDERED: OXYCODONE HCL5 M1 PO (09:04)
--- NOTE | 2019-06-12 11:33 | OP ---
PATIENT NAME: BARRY WORTHINGTON MEDICAL RECORD: [id number] :50 LOCATION:[facility] ADMISSION DATE: SURGEON: YOUNG CHEEMA DO DATE OF OPERATION: 06/12/2019 PROCEDURES PERFORMED: Left shoulder arthroscopy with rotator cuff repair with Regeneten, subacromial decompression, distal clavicle excision, biceps tenodesis. PREOPERATIVE DIAGNOSES: Left shoulder rotator cuff tear, AC joint arthritis, SLAP tear, and subacromial impingement. POSTOPERATIVE DIAGNOSES: Left shoulder rotator cuff tear, AC joint arthritis, SLAP tear, and subacromial impingement. INDICATIONS: Ms. Worthington is a 68-year-old female well known to me. She had an MRI of her left shoulder several months ago, did a reverse total shoulder on her right side and I had done a total knee replacement on her in the past. She wanted to get the right shoulder done first, which we did. Her left shoulder MRI did show a tear, but it was not retracted and there was no atrophy in the supraspinatus. She wanted to wait to get that done last and so that time came. She is aware of the risks including retear, infection, bleeding, continued pain, frozen shoulder, blood clots, even and loss of use of that arm, damage to nerves or vessels in the area, and she signed the consent. SURGEON: Young Cheema DO DESCRIPTION OF PROCEDURE: The patient received block by anesthesia in the preoperative area. She was taken to the operative suite, laid in the right lateral decubitus position with the left arm up. She was then sedated and LMA was placed. The left shoulder was prepped and draped in sterile fashion. A timeout was performed and everyone was in agreement with correct side, site, patient and procedure. We then started by putting an 18-gauge spinal needle through the posterior portal into the shoulder joint and putting in 50 mL of normal saline. The portal was then established with an 11-blade scalpel and trocar was entered in the joint. Anterior portal was established with an 18-guage spinal needle and 11-blade scalpel. I then noted the SLAP tear. Did a bicep tenotomy at that point. Checked the rotator cuff tendon and she did have through the supraspinatus had some tear on the articular side. The subscapularis was in good repair. She did have a small piece of cartilage off the humerus more on the superior aspect, not on the central portion. The infraspinatus was also in good repair. There was a small loose body of the cartilage in the joint, which was taken out. The shaver was brought in through the anterior portal and this was done. I then went to the subacromial space and a lateral portal was established with an 18-gauge spinal needle and 11-blade scalpel and then with a shaver and a burner, the acromion was cleaned off and acromioplasty was done as well as subacromial decompression and through the anterior portal, distal clavicle excision was done. I then noted the rotator cuff tear on the bursal side and opened the shoulder laterally through that portal extending with a 15 blade scalpel. Blunt dissection was made down then through the deltoid into the rotator cuff. The tear was somewhat larger when it was opened. I decided to use an anchor. Decortication was done on the humerus and then a single anchor was used and then using 4 strands of suture tape through the tendon and brought over to the lateral row nicely repairing the tendon. Then, a Regeneten patch was placed on top of that and stapled into OPERATIVE REPORT [id number] BARRY WORTHINGTON. Then, attention was drawn to the anterior humerus. Careful dissection was made down on the anterior humerus down to the long head of the bicep tendon. This was pulled out through the incision and an anchor was put into the anterior humerus unicortically and then malleted into place and held very well. Then the tendon was looped through the suture and cinched down to the humerus and then cut the suture and brought up through the tendon twice and tied it down. We then cut the excess suture and tendon and then irrigated thoroughly at the open rotator cuff repair site. These were then closed by Jesus Davison, certified surgical accounts payable assistant with 2-0 Vicryl and 4-0 Monocryl running on the skin and then 4-0 Monocryl in the portal sites in an inverted interrupted fashion. Dermabond glue was then placed on all sites, and Telfa and Tegaderm were used for dressing. She was then awakened and taken to recovery in stable condition. BLOOD LOSS: Minimal. COMPLICATIONS: None. TRANSINT:[id number] Voice Confirmation ID: [id number] DOCUMENT ID: [id number] YOUNG CHEEMA DO at 1133 CC: [id number] DICTATION DATE: 06/12/19908 JIGSAWYER: 06/12/19 1107 [facility] [place] [id number] [place] [id number]
== END 2019-06-12 11:00 | disposition home or self-care (01) ==
LOC: D.OPS 05:40 → D.PAN 07:45 → D.OPS 07:45 → D.PAN 07:55 → D.OPS 07:55 → D.PAN 08:00 → D.OPS 11:00
PROVIDERS: Anesthesiology; ATTEND Orthopaedic Surgery
DX: M75.122 Complete rotator cuff tear or rupture of left shoulder, not specified as traumatic (principal); M13.812 Other specified arthritis, left shoulder; S43.432A Superior glenoid labrum lesion of left shoulder, initial encounter; X58.XXXA Exposure to other specified factors, initial encounter; M25.812 Other specified joint disorders, left shoulder; I10 Essential (primary) hypertension; K21.9 Gastro-esophageal reflux disease without esophagitis